=== PATIENT | male | born 1995 | race Caucasian/White ===

== ENCOUNTER 2017-07-26 22:09 | Emergency (ER) | payer OTHER ==
[2017-07-26] MEDS ORDERED: LIDOCAINE 2%-EPI 1:100000 20 ML MDV ONE (22:18)
[2017-07-26] MEDS ORDERED: LIDOCAINE 2%-EPI 1:100000 20 ML MDV SUBQ STA (22:35)
--- NOTE | 2017-07-26 22:37 | ED Physician Documentation ---
PD HPI LOWER EXT INJURY - Stated complaint Stated Complaint: RT FOOT LAC - Chief complaint Chief Complaint: Laceration - History obtained from History obtained from: Patient, Family - History of Present Illness PD HPI LOW EXT INJURY LOCATION: Right, Foot Type of injury: Laceration Where injury occurred: Home Timing - onset: How many hours ago (1) Timing - duration: Hours (1) Timing - details: Abrupt onset Pain level max: 5 Pain level now: 2 Improved by: Rest Worsened by: Moving, Palpating Associated symptoms: No: Weakness, Numbness, Tingling, Swelling Similar symptoms before: Has not had sx before Recently seen: Not recently seen Review of Systems Musculoskeletal: denies: Neck pain, Back pain Neurologic: denies: Headache PD PAST MEDICAL HISTORY - Past Medical History Past Medical History: No - Past Surgical History Past Surgical History: No - Present Medications Home Medications: Ambulatory Orders Medication Instructions Recorded Confirmed Ibuprofen [Motrin] 800 mg PO Q8H PRN #30 tablet 07/26/17 - Allergies Allergies/Adverse Reactions: Allergies Allergy/AdvReac Type Severity Reaction Status Date / Time No Known Drug Allergies Allergy Verified 07/26/17 22:14 - Social History Does the pt smoke?: No Smoking Status: Never smoker Does the pt drink ETOH?: Yes Does the pt have substance abuse?: No - Immunizations Immunizations are current?: Yes - POLST Patient has POLST: No PD ED PE NORMAL - Vitals Vital signs reviewed: Yes - General General: Alert and oriented X 3, No acute distress - Derm Derm: Warm and dry - Neuro Neuro: Alert and oriented X 3 - Psych Psych: Normal mood, Normal affect PD ED PE EXPANDED - Extremities Feet visual: 1 - laceration (2cm, linear. tendon exposed. NVI. no tendon injury. No FB seen) 2 - laceration (5cm, linear. NVI. No FB seen. No tendon injury) Results - Vitals Vitals: Vital Signs - 24 hr 07/26/17 07/26/17 22:14 23:18 Temperature 37.0 C Heart Rate 91 85 Respiratory 14 16 Rate Blood Pressure 143/95 H 118/70 O2 Saturation 98 96 Oxygen O2 Source Room air - Rads (name of study) R foot xray Radiology: Prelim report reviewed, EMP read contemporaneously, See rad report ( normal, no FB) Procedures - Laceration (location) R foot Length in cm: 7 Wound type: Linear, Into subcut fat, Clean Neurovascular status: Sensory intact, Motor intact, Vascular intact Tendon involvement: Tendon intact. No: Tendon Injury Anesthesia: Lidocaine 2% with epi Wound Preparation: Irrigated copiously NS (500ml), Wound explored, To the base. No: FB identified, FB removed Skin layer closure: Nylon, Interrupted, Size #-0 - enter number (4) Other: Patient tolerated well, No complications, Neurovascular intact, Dressing applied, Tetanus UTD Complexity: Simple PD MEDICAL DECISION MAKING - ED course Complexity details: reviewed results, re-evaluated patient, considered differential, d/w patient ED course: Patient is a 21-year-old male with lacerations to the right foot. These were repaired. Tolerated well. No foreign bodies on exam or x-ray. No tendon injury. Neurovascularly intact. Warnings of infection and instructions on wound care given at bedside. Also counseled on how to minimize scarring. Patient counseled regarding signs and symptoms for which I believe and urgent re -evaluation would be necessary. Patient with good understanding of and agreement to plan and is comfortable going home at this time This document was made in part using voice recognition software. While efforts are made to proofread this document, sound alike and grammatical errors may occur. Also placed into a postoperative shoe for comfort Departure - Departure Disposition: 01 Home, Self Care Clinical Impression: Laceration of foot Qualifiers: Encounter type: initial encounter Laterality: right Qualified Code(s): S91.311A - Laceration without foreign body, right foot, initial encounter Condition: Good Instructions: ED Laceration Foot Follow-Up: [facility] [Provider Group] (in 10-14 days for suture removal) Prescriptions: Ibuprofen [Motrin] 800 mg PO Q8H PRN #30 tablet PRN Reason: PAIN &/OR FEVER Comments: Return if you worsen. The sutures should be removed in 10-14 days with your doctor. Your blood pressure was elevated today on check in to the emergency department. This does not mean that you have hypertension, it is a common phenomenon to check into the emergency department and have elevated blood pressure. I recommend that you see your primary care physician within the week to have it rechecked when you're feeling better. Discharge Date/Time: 07/26/17 23:22
--- NOTE | 2017-07-26 23:18 | XRAY Preliminary Report ---
Exam: XR Foot 3 View RT IMPRESSION: No bony abnormality or foreign body identified. [facility] SITE ID: [id number]
[2017-07-26 23:19] VITALS: BP 118/70
--- NOTE | 2017-07-26 23:21 | XRAY Report ---
EXAM: RIGHT FOOT RADIOGRAPHY EXAM DATE: 07/26/2017 11:01 PM. CLINICAL HISTORY: Laceration. Concern for foreign body. COMPARISON: None. TECHNIQUE: 3 views. FINDINGS: Bones: Normal. No fractures or bone lesions. Joints: Normal. No subluxations. Soft Tissues: Lateral soft tissue injury noted. No foreign body identified. IMPRESSION: No bony abnormality or foreign body identified. [facility] Referring Provider Line: [phone] SITE ID: [id number]
== END 2017-07-26 23:22 | disposition home or self-care (01) ==
LOC: ED 22:09
DX: S91.312A Laceration without foreign body, left foot, initial encounter (principal); W22.8XXA Striking against or struck by other objects, initial encounter; W25.XXXA Contact with sharp glass, initial encounter; Y93.89 Activity, other specified; Y92.009 Unspecified place in unspecified non-institutional (private) residence as the place of occurrence of the external cause; R03.0 Elevated blood-pressure reading, without diagnosis of hypertension
CPT/HCPCS: 12002; 99283; 99284

== ENCOUNTER 2017-08-03 22:47 | Emergency (ER) | payer OTHER ==
[2017-08-04] MEDS ORDERED: CEPHALEXIN 250 MG CAPSULE PO STA (00:36)
[2017-08-04] MEDS ORDERED: CEPHALEXIN 250 MG Prepack 8 PO STA (00:36)
--- NOTE | 2017-08-04 00:49 | ED Physician Documentation ---
PD HPI WOUND RECHECK - Stated complaint Stated Complaint: WOUND CHECK - Chief complaint Chief Complaint: General - Histroy obtained from History obtained from: Patient, Friend - History of Present Illness Location: Right Foot Timing - onset: How many days ago (8) Associated symptoms: Drainage. No: Fever Similar symptoms before: Work up / diagnostics Recently seen: Emergency Dept - Additional information Additional information: Patient is a 21 year old male presenting to the emergency department for wound check. Patient had a laceration of his foot about 8 days ago. At that time the wound was repaired and sutures were placed. Patient states that he had some discharge coming out of his wound so he came in for evaluation. Review of Systems Constitutional: denies: Fever, Chills Eyes: denies: Decreased vision Ears: denies: Ear pain, Drainage/discharge Nose: denies: Congestion Throat: reports: Reviewed and negative Cardiac: denies: Chest pain / pressure GI: denies: Nausea, Vomiting Skin: reports: Laceration (s) Musculoskeletal: reports: Extremity pain, Extremity swelling Neurologic: denies: Focal weakness, Altered mental status Endocrine: denies: Easy bruising / bleeding Immunocompromised: denies: Immunocompromised PD PAST MEDICAL HISTORY - Past Medical History Past Medical History: No - Past Surgical History Past Surgical History: No - Present Medications Home Medications: Ambulatory Orders Medication Instructions Recorded Confirmed Ibuprofen [Motrin] 800 mg PO Q8H PRN #30 tablet 07/26/17 Cephalexin [Keflex] 500 mg PO Q6H 7 Days 08/04/17 - Allergies Allergies/Adverse Reactions: Allergies Allergy/AdvReac Type Severity Reaction Status Date / Time No Known Drug Allergies Allergy Verified 08/03/17 23:04 - Social History Does the pt smoke?: No Smoking Status: Never smoker Does the pt drink ETOH?: Yes Does the pt have substance abuse?: No - Immunizations Immunizations are current?: Yes - POLST Patient has POLST: No PD ED PE NORMAL - Vitals Vital signs reviewed: Yes - General General: Alert and oriented X 3, No acute distress, Well developed/nourished - HEENT HEENT: Atraumatic, PERRL - Neck Neck: Supple, no meningeal sign - Cardiac Cardiac: RRR, No murmur - Respiratory Respiratory: No respiratory distress - Abdomen Abdomen: Non distended - Neuro Neuro: Alert and oriented X 3, No motor deficit, No sensory deficit, Normal speech PD ED PE EXPANDED - Extremities Extremities: Right foot (healing wound on the lateral side of the right foot, minimal redness, no discharge appreciated) Results - Vitals Vitals: Vital Signs - 24 hr 08/03/17 23:02 Temperature 36.6 C Heart Rate 55 L Respiratory 17 Rate Blood Pressure 111/69 O2 Saturation 98 Oxygen O2 Source Room air PD MEDICAL DECISION MAKING - ED course Complexity details: reviewed old records, re-evaluated patient, considered differential, d/w patient, d/w family ED course: Patient was seen and examined at bedside. Patient's wound was viewed and a few sutures were removed. patient was started on antibiotics and was stable for discharge with outpatient follow up. Departure - Departure Disposition: 01 Home, Self Care Clinical Impression: Laceration of foot Condition: Good Instructions: ED Laceration Foot Follow-Up: primary,care provider [Other] - Within 1 week Prescriptions: Cephalexin [Keflex] 500 mg PO Q6H 7 Days Comments: Your wound looks like it is healing. there is a questionable infection brewing so you are being started on antibiotics. You will need to take the entire course of antibiotics. You should follow up with your doctor in 5 days for suture removal. You can take motrin or tylenol as needed for pain. You may return to the emergency department at any time as needed for new, worsening or uncontrollable symptoms.
[2017-08-04] MEDS ORDERED: CEPHALEXIN 250 MG CAPSULE PO ONE (00:52)
[2017-08-04] MEDS ORDERED: CEPHALEXIN 250 MG Prepack 8 PO ONE (00:52)
[2017-08-04 01:03] VITALS: BP 112/66
== END 2017-08-04 01:04 | disposition home or self-care (01) ==
LOC: ED 22:47
DX: S91.311D Laceration without foreign body, right foot, subsequent encounter (principal); X58.XXXD Exposure to other specified factors, subsequent encounter
CPT/HCPCS: 99283; A9270